=== PATIENT | female | born 1985 | race American Indian/Alaskan Native ===

== ENCOUNTER 2020-03-16 05:36 | Day surgery (SDC) | payer MEDICAID ==
--- NOTE | 2020-03-15 12:42 | History and Physical Report ---
History of Present Illness Date of examination: 03/15/20 Date of admission: 03/16/2020 Chief complaint: missed ab History of present illness: 34 yo with ~11-12 weeks by LMP c/b Fibromyalgia, h/o c/s x 1, hip surgery presenting for ultrasound guided suction D&C for missed . NO viable IUP with +CM confirmed x 2 as outpatient. No interval changes on day of surgery. Ok to proceed with surgical management. Past History Past Medical History: fibromyalgia Past Surgical History: section, other (hip surgery) - Obstetrical History : 2 Para: 1 Hx # Term Pregnancies: 1 Number of Living Children: 1 Medications and Allergies Allergies Allergy/AdvReac Type Severity Reaction Status Date / Time iodine Allergy Hives Verified 03/15/20 15:16 shellfish derived Allergy Anaphylaxis Verified 03/15/20 15:16 Home Medications Medication Instructions Recorded Confirmed Last Taken Type No Known Home Medications [No 03/15/20 03/15/20 Unknown History Reported Home Medications] Review of Systems All systems: negative (expect HPI) - Physical Exam Cardiovascular: Regular rate Lungs: Positive: Clear to auscultation, Normal air movement Abdomen: Positive: normal appearance, other (obese) Results Result Diagrams: 03/16/20 06:35 03/16/20 06:35 All other labs normal. Ultrasound: other (03/15/2020 +GS 5.03 cm with decidual cast intact, cvx closed, no CRL or FHTs) Assessment and Plan - Patient Problems (1) Missed Current Visit: No Status: Acute Plan to address problem: To OR for ultrasound guided dilation and curettage --Questioned solicited and answered --Consented in chart --Anticipate discharge home from PACU
[~2020-03-16 05:36] MED LIST: ceFAZolin/Water 2 GM/20 ML 2 GM/20 ML SYRINGE IV NR
[2020-03-16] MEDS ORDERED: LACTATED RINGERS 1,000 ML ONE ×2 (06:18→08:22)
[2020-03-16] MEDS ORDERED: ONDANSETRON 4 MG/2 ML INJ ONE ×2 (06:18→07:29)
[2020-03-16] MEDS ORDERED: BACTERIOSTATIC SODIUM CHLORIDE 0.9% 30 ML VIAL INFILTRATI ONE (06:19)
[2020-03-16] MEDS ORDERED: SILVER NITRATE APPLICATOR 1 EA TP ONE (06:42)
[2020-03-16] MEDS ORDERED: METHYLERGONOVINE MALEATE 0.2 MG/ML VIAL IM ONE (06:43)
[2020-03-16 06:58] LABS: Basophils % (Auto) 0.5 % (0.0-1.8); Eosinophils # (Auto) 0.2 K/mm3 (0.0-0.4); Eosinophils % (Auto) 2.1 % (0.0-4.3); Hematocrit 37.8 % (30.3-42.9); Hemoglobin 13.3 gm/dl (10.1-14.3); Lymphocytes % (Auto) 11.6 % (13.4-35.0); Mean Corpuscular HGB Conc 35 % (30-34); Mean Corpuscular Volume 95 fl (79-97); Monocytes # (Auto) 0.7 K/mm3 (0.0-0.8); Monocytes % (Auto) 7.4 % (0.0-7.3); Platelet Count 244 K/mm3 (140-440); Red Blood Count 3.98 M/mm3 (3.65-5.03); Red Cell Distribution Width 13.1 % (13.2-15.2)
[2020-03-16 07:13] LABS: Alanine Aminotransferase 12 units/L (7-56); Albumin 3.8 g/dL (3.9-5); Blood Urea Nitrogen 7 mg/dL (7-17); Calcium 9.4 mg/dL (8.4-10.2); Hemolysis Index 4
[2020-03-16 07:14] LABS: BUN/Creatinine Ratio 18
[2020-03-16] MEDS ORDERED: MIDAZOLAM 2 MG/2 ML INJ IV NR (07:15)
[2020-03-16] MEDS ORDERED: LACTATED RINGERS 1,000 ML IV SCH (07:15)
[2020-03-16] MEDS ORDERED: ONDANSETRON 4 MG/2 ML INJ IV PRN (07:23)
[2020-03-16] MEDS ORDERED: HYDROmorphone 1 MG/1 ML INJ IV PRN ×2 (07:23)
--- NOTE | 2020-03-16 07:24 | Anesthesia Day of Surgery ---
Anesthesia Day of Surgery - Day of Surgery Patient Examined: Yes Patient H&P Reviewed: Yes Patient is NPO: Yes
--- NOTE | 2020-03-16 07:26 | Anesthesia Consultation ---
Anesthesia Consult and Med Hx Date of service: 03/16/20 - Airway Anesthetic Teeth Evaluation: Chipped (teeth are "messed up") ROM Head & Neck: Adequate Mental/Hyoid Distance: Adequate Mallampati Class: Class III Intubation Access Assessment: Probably Good - Pre-Operative Health Status ASA Pre-Surgery Classification: ASA2 Proposed Anesthetic Plan: General - Cardiovascular System Hx Heart Murmur: Yes - Central Nervous System Hx Neuromuscular Disorder: Yes (RA; "trace" lupus. Fibromyalgia) Hx Psychiatric Problems: No - Gastrointestinal Hx Gastroesophageal Reflux Disease: Yes - Other Systems Hx Cancer: No Hx Obesity: Yes
[2020-03-16] MEDS ORDERED: fentaNYL 100 MCG/2 ML INJ ONE ×2 (07:29→08:09)
[2020-03-16] MEDS ORDERED: LIDOCAINE MPF (2%) 20 MG/1 ML VIAL 5 ML ONE (07:29)
[2020-03-16] MEDS ORDERED: propofoL 200 MG/20 ML VIAL IV ONE (07:30)
[2020-03-16] MEDS ORDERED: dexAMETHasone 20 MG/5 ML VIAL ONE (07:58)
[2020-03-16] MEDS ORDERED: OXYTOCIN 10 UNIT/1 ML INJ ONE ×2 (08:11)
--- NOTE | 2020-03-16 08:18 | Procedure Note ---
Date of procedure: 03/16/20 Pre-op diagnosis: missed Post-op diagnosis: same Procedure: Preoperative diagnosis: 1. missed Postoperative diagnosis: 1. Same Operation performed: 1. Examined under anesthesia 2. Dilation & curettage Surgeon: Loree Thomas Anesthesia: General EBL: 500cc UOP: 25cc IVF 1000cc Pathology specimens: Uterine contents Complications: none Disposition and condition: To the PACU in stable condition then discharged home Findings: 1. 10 week size mobile uterus 2. Moderate amount of products of conception Statement of medical necessity: 34 yo with ~11-12 weeks by LMP c/b Fibromyalgia, h/o c/s x 1, hip surgery presenting for ultrasound guided suction D&C for missed . NO viable IUP with +CM confirmed x 2 as outpatient. She desired surgical management. The procedure risk benefits, indications and alternatives reviewed patient. Description of operation: After informed consent, the patient was taken to the OR and placed in Jj stirrups after general anesthesia was administered. An exam under anesthesia was performed with the findings noted above. The vagina was prepped and draped in the usual sterile fashion. Catheterization of the bladder was performed. A duckbill speculum was placed to visualize the cervix. A single-tooth tenaculum was placed onto the anterior cervical lip. Serial dilation of the cervix with Danielson dilators was performed. The uterus was gently sounded to 10 centimeters. Suction was calibrated to 60 mmHg, and a 9 millimeters curette was gently advanced into the uterine cavity fundus. Suction was applied, and the curette was rotated to evacuate the uterus of products of conception. A sharp curettage was performed until a gritty texture was noted. Suction curettage was repeated to clear the remaining products of conception. Minimal bleeding was noted. The tenaculum was removed from the cervix with good hemostasis noted. The speculum was removed. 10mg pitocin IV and 10mg pitocin IM was administered at end of procedure. Patient tolerated the procedure well and was taken to recovery room in good condition. Anesthesia: GETA Surgeon: LOREE THOMAS JR Estimated blood loss: other (500cc) IV fluids: 1,000 Urine output: 25 Pathology: list (uterine contents) Specimen disposition: to lab Condition: stable Disposition: same day
[2020-03-16] MEDS ORDERED: IBUPROFEN 600 MG TAB PO PRN (08:30)
[2020-03-16] MEDS ORDERED: oxyCODONE /ACETAMINOPHEN 5-325MG TAB PO PRN (08:30)
--- NOTE | 2020-03-16 08:47 | Ultrasound Report ---
ULTRASOUND-GUIDED INTRAOPERATIVE HISTORY: Missed , ultrasound guidance for D and C COMPARISON: None at this facility. FINDINGS: Transabdominal ultrasound guidance was provided by radiology during D and C by Dr. Lopez of [employer] [facility]. Initial images demonstrate an empty gestational sac within the endometrial canal. The endomet rium measures up to 4.8 cm in thickness. Following D and C the endometrium measures 5.6 mm. Please co rrelate with the procedural report as needed. IMPRESSION: Successful D and C with ultrasound guidance. Signer Name: Rolly Kelley Jr, MD Signed: 03/16/2020 8:42 AM Workstation Name: [id number]
--- NOTE | 2020-03-16 09:25 | Post Anesthesia Evaluation ---
- Post Anesthesia Evaluation Patient Participated: Yes Airway Patent: Yes Stable Respiratory Function: Yes Nausea/Vomiting: No Temp > 96.8F: Yes Pain Manageable: Yes Adequeate Hydration: Yes Anesthesia Complications: No Block Receding Appropriately: Not Applicable Patient on Ventilator: No
[2020-03-16 09:29] VITALS: BP 123/75
== END 2020-03-16 09:35 | disposition home or self-care (01) ==
LOC: OR 05:36
PROVIDERS: ATTEND Obstetrics & Gynecology
DX: O02.1 Missed abortion (principal); K21.9 Gastro-esophageal reflux disease without esophagitis; E66.9 Obesity, unspecified; M79.10 Myalgia, unspecified site; M19.90 Unspecified osteoarthritis, unspecified site; Z98.891 History of uterine scar from previous surgery; Z98.890 Other specified postprocedural states; Z79.899 Other long term (current) drug therapy; Z90.13 Acquired absence of bilateral breasts and nipples; Z91.041 Radiographic dye allergy status
CPT/HCPCS: 36415; 59820; 76998; 80053; 84703; 85025; 86850; 86900; 86901; 88305; J0690; J1100; J2210; J2250; J2405; J2590; J2704; J3010; J7120